=== PATIENT | male | born 1990 | race Two or more races ===

== ENCOUNTER 2022-01-27 18:27 | Emergency (ER) | payer SELFPAY ==
--- NOTE | 2022-01-27 20:01 | NUR ---
CALLED FOR TRIAGE. NO ANSWER.
--- NOTE | 2022-01-27 20:40 | NUR ---
CALLED FOR TRIAGE. NO ANSWER.
== END 2022-01-27 20:42 | disposition left against medical advice (07) ==
LOC: ER 18:29
DX: Z53.21 Procedure and treatment not carried out due to patient leaving prior to being seen by health care provider (principal)